=== PATIENT | female | born 1990 | race Caucasian/White ===

== ENCOUNTER 2021-08-11 12:34 | Emergency (ER) | payer OTHER ==
[~2021-08-11] VITALS: Ht 162.6 cm; Wt 48.5 kg
[2021-08-11 12:40] VITALS: BP_SYST 115
--- NOTE | 2021-08-11 12:42 | NUR ---
PT STATES THAT FOR THE LAST 7 NIGHTS SHE HAS BEEN HAVING GERD/GASTRITIS ISSUES WHICH WERE SOB, EPIGASTRIC PAIN WITH TACHYCARDIA. PT STATES TODAY SHE IS POSSIBLY HAVING A PANIC ATTACK, PT APPEARS ANXIOUS. PT STATING THAT SOMETHING IS REALLY WRONG AND SHE JUST WANTS TO BE OK. EKG PERFORMED IN TRIAGE ROOM AND GIVEN TO DR FORD FOR INTERPRETATION. PT IS TACHYCARDIC.
--- NOTE | 2021-08-11 13:30 | NUR ---
Patient to ER bed H1 to gown for evaluation. Side rails up.
--- NOTE | 2021-08-11 14:27 | NUR ---
Dr Dickson evaluating patient at bedside
--- NOTE | 2021-08-11 14:30 | NUR ---
Jammie ayala in [facility] - 08/11/21 at 1430 by [email or web address] GREGOR DRISCOLL PT
[2021-08-11] MEDS ORDERED: PEPTO PO (14:37)
[2021-08-11] MEDS ORDERED: MAG HYDROX/AL HYDROX/SIMETH 30 ML, DICYCLOMINE HCL 20 MG, LIDOCAINE VISCOUS 2% 15ML (PO... PO ONE ×3 (14:45)
--- NOTE | 2021-08-11 14:52 | NUR ---
Patient given written and verbal discharge instructions and verbalizes understanding. ER MD discussed with patient the results and treatment provided. Patient in stable condition. ID arm band removed. Rx of BISMUTH SUBSALICYLATE given. Patient educated on pain management and to follow up with PMD. Pain Scale 0/10. Opportunity for questions provided and answered. Medication side effect fact sheet provided.
[2021-08-11 14:55] VITALS: BP_SYST 115
== END 2021-08-11 14:52 | disposition home or self-care (01) ==
LOC: SED 12:34
DX: K29.70 Gastritis, unspecified, without bleeding (principal); R00.0 Tachycardia, unspecified; K21.9 Gastro-esophageal reflux disease without esophagitis
CPT/HCPCS: 81025; 99283; J2001

== ENCOUNTER 2021-11-09 23:59 | Emergency (ER) | payer SELFPAY ==
[~2021-11-09] VITALS: Ht 162.6 cm; Wt 49.0 kg
[~2021-11-09 23:59] MED LIST: PEPTO PO
[2021-11-10 00:11] VITALS: BP_SYST 113
--- NOTE | 2021-11-10 00:12 | NUR ---
Patient to ER bed 4 to gown for evaluation. Side rails up. Report given to Rea COHEN (reg).
--- NOTE | 2021-11-10 00:29 | NUR ---
ER at bedside examining patient.
--- NOTE | 2021-11-10 00:30 | NUR ---
ASSUME CARE OF PT BY ROXANA RN, PT C/O HEADACE WITH NAUSEA X SEVERAL HRS, HX- GASTRITIS AND MIGRAINES. PT STATES SHE HAS HEADACHES AND DOES NOT COMPLAIN BUT NEVER THIS BAD. PT SAYS LIGHT MAKES IT WORSE, DENIES DOUBLE OR BLURRY VISION.
[2021-11-10] MEDS ORDERED: KETOROLAC TROMETHAMINE 60 MG/2 ML VIAL IM ONE (00:45)
[2021-11-10] MEDS ORDERED: DIPHENHYDRAMINE INJ 50 MG/ML VIAL IM ONE (00:45)
[2021-11-10] MEDS ORDERED: PROCHLORPERAZINE EDISYLATE 10 MG/2 ML VIAL IM ONE (00:45)
[2021-11-10] MEDS ORDERED: ONDA-8 TL (00:47)
[2021-11-10 01:36] VITALS: BP_SYST 132
--- NOTE | 2021-11-10 01:42 | NUR ---
Patient given written and verbal discharge instructions and verbalizes understanding. ER MD discussed with patient the results and treatment provided. Patient in stable condition. ID arm band removed. IV catheter removed intact and dressing applied, no active bleeding. Rx of zofran given. Patient educated on pain management and to follow up with PMD. Pain Scale . Opportunity for questions provided and answered. Medication side effect fact sheet provided.
== END 2021-11-10 01:36 | disposition home or self-care (01) ==
LOC: SED 23:59
DX: G43.909 Migraine, unspecified, not intractable, without status migrainosus (principal); R11.0 Nausea; K21.9 Gastro-esophageal reflux disease without esophagitis; Z79.899 Other long term (current) drug therapy
CPT/HCPCS: 99284; 81025; 96372; J1200; J1885; J0780

== ENCOUNTER 2022-02-27 01:58 | Emergency (ER) | payer OTHER ==
[~2022-02-27] VITALS: Ht 162.6 cm; Wt 50.8 kg
[~2022-02-27 01:58] MED LIST changes: +ONDA-8 TL
[2022-02-27 02:08] VITALS: BP_SYST 131
--- NOTE | 2022-02-27 02:25 | NUR ---
Pt report received. Pt c/o elevated HR x 3 hours [employer] and states "I don't feel good overall." Pt denies c/o C/P or discomfort, no SOB. HR 88 NSR. VSS, NAD at this time.
--- NOTE | 2022-02-27 02:25 | NUR ---
Placed in room 1 . Placed on purchase analyst, blood pressure machine and pulse oximeter. To gown for exam. Side rails up. Report given to Colten COHEN.
[2022-02-27] MEDS ORDERED: SIMETHICONE 80 MG TAB.CHEW PO ONE (02:30)
[2022-02-27] MEDS ORDERED: FAMOTIDINE 20 MG TABLET PO ONE (02:30)
--- NOTE | 2022-02-27 02:31 | NUR ---
ER at bedside examining patient.
[2022-02-27 02:59] LABS: BILIRUBIN,URINE NEGATIVE (NEGATIVE); CLARITY/URINE CLEAR (CLEAR); COLOR,URINE YELLOW (YELLOW); GLUCOSE,URINE NEGATIVE (NEGATIVE); KETONES,URINE NEGATIVE (NEGATIVE); LEUKOCYTE ESTERASE ,URINE TRACE (NEGATIVE); NITRITE, URINE NEGATIVE (NEGATIVE); PH,URINE 6.5 (5.0-8.0); PROTEIN URINE NEGATIVE (NEGATIVE); UROBILINOGEN,URINE 0.2 (0.2-1.0)
[2022-02-27 03:10] LABS: BLOOD, URINE TRACE (NEGATIVE)
[2022-02-27 03:27] LABS: ANION GAP 5 (5-15); CALCIUM 8.8 mg/dL (8.4-11.0); CHLORIDE 107 mmol/L (98-107); CREATININE 0.57 mg/dL (0.55-1.30); GLUCOSE 111 mg/dL (70-99); UREA NITROGEN, BLOOD 11 mg/dL (8-21)
[2022-02-27 03:29] LABS: BACTERIA,URINE FEW /HPF (None Seen); MUCUS,URINE None Seen /LPF (None Seen); WBC,URINE 0-3 /HPF (0-3)
[2022-02-27 03:42] LABS: ALANINE AMINOTRANSFERASE 18 U/L (12-78); ALBUMIN 3.7 g/dL (3.4-4.8); ASPARTATE AMINOTRANSFERASE 18 U/L (10-37); LIPASE 142 U/L (73-393); THYROID STIMULATING HORMONE 2.27 uIu/mL (0.36-3.74); TOTAL BILIRUBIN 0.4 mg/dL (0.0-1.0)
[2022-02-27 03:47] LABS: GFR AFRICAN AMERICAN 160 mL/min (>90)
--- NOTE | 2022-02-27 04:00 | NUR ---
Pt denies c/o pain or discomfort, no needs verbalized at this time. VSS, NAD.
[2022-02-27 06:27] LABS: BASOPHILS % (AUTO) 0.6 % (0.0-2.0); EOSINOPHILS # (AUTO) 0.2 K/uL (0.0-0.4); EOSINOPHILS % (AUTO) 2.6 % (0.0-4.0); HEMATOCRIT 33.5 % (36-48); HEMOGLOBIN 11.3 g/dL (12.0-16.0); LYMPHOCYTES # (AUTO) 2.2 K/uL (1.0-5.5); LYMPHOCYTES % (AUTO) 35.7 % (20.5-51.5); MEAN CORPUSCULAR HEMOGLOBIN 30 pg (27-31); MEAN CORPUSCULAR HGB CONC 34 % (32-36); MEAN CORPUSCULAR VOLUME 90 fL (79.0-98.0); MONOCYTES # (AUTO) 0.8 K/uL (0.0-1.0); MONOCYTES % (AUTO) 12.9 % (1.7-9.3); NEUTROPHILS % (AUTO) 48.2 % (40.0-70.0); PLATELET COUNT (AUTO) 291 K/uL (130-430); RED BLOOD CELL COUNT(AUTO) 3.74 MIL/uL (4.2-6.2); RED CELL DISTRIBUTION WIDTH 13.7 % (9.0-15.0); WHITE BLOOD COUNT (AUTO) 6.2 K/uL (4.8-10.8)
--- NOTE | 2022-02-27 06:57 | NUR ---
Patient given written and verbal discharge instructions and verbalizes understanding. ER MD discussed with patient the results and treatment provided. Patient in stable condition. ID arm band removed. No Rx given. Patient educated on pain management and to follow up with PMD. Pain Scale 0/10. Opportunity for questions provided and answered. Medication side effect fact sheet provided.
[2022-02-27 06:58] VITALS: BP_SYST 112
== END 2022-02-27 06:57 | disposition home or self-care (01) ==
LOC: SED 01:58
DX: R00.2 Palpitations (principal); R07.9 Chest pain, unspecified; K21.9 Gastro-esophageal reflux disease without esophagitis; Z79.899 Other long term (current) drug therapy; Z20.822 Contact with and (suspected) exposure to COVID-19
CPT/HCPCS: 36415; 71045; 80053; 81000; 81025; 83690; 84443; 84484; 85025; 85379; 93005; 99285